=== PATIENT | female | born 1980 | race American Indian/Alaskan Native ===

== ENCOUNTER 2018-11-29 18:24 | Emergency (ER) | payer OTHER ==
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
[2018-11-29] MEDS ORDERED: TYLENOL PO ONE (19:58)
[2018-11-29] MEDS ORDERED: IBUPROFEN PO ONE (19:58)
[2018-11-29] MEDS ORDERED: ZOFRAN ODT PO ONE (19:59)
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
[2018-11-29 20:43] VITALS: BP 156/86
== END 2018-11-29 20:25 | disposition home or self-care (01) ==
LOC: ED 18:24
DX: M62.830 Muscle spasm of back (principal); M62.838 Other muscle spasm; Z79.899 Other long term (current) drug therapy; V49.49XA Driver injured in collision with other motor vehicles in traffic accident, initial encounter; Y93.89 Activity, other specified; Y92.89 Other specified places as the place of occurrence of the external cause; Y99.8 Other external cause status
CPT/HCPCS: 72040; 72100; Q0162